=== PATIENT | male | born 1950 | race Caucasian/White ===

== ENCOUNTER 2016-09-18 09:56 | Outpatient (CLI) | payer MEDICARE, OTHER | END 2016-09-18 09:57 | disposition home or self-care (01) | DX: E78.00 Pure hypercholesterolemia, unspecified (principal) ==

== ENCOUNTER 2016-09-30 10:46 | Outpatient (CLI) | payer MEDICARE, OTHER | END 2016-09-30 10:47 | disposition home or self-care (01) | DX: R97.20 Elevated prostate specific antigen [PSA] (principal) ==

== ENCOUNTER 2017-03-28 08:24 | Outpatient (CLI) | payer MEDICARE, OTHER ==
[2017-03-28 12:09] LABS: ALBUMIN/GLOBULIN RATIO 1.6 (1.0-2.2); BILIRUBIN,TOTAL 0.8 mg/dL (0.2-1.0); BUN - BLOOD UREA NITROGEN 28 mg/dL (6-20); CALCIUM 9.1 mg/dL (8.5-10.3); CARBON DIOXIDE - CO2 28 mmol/L (21-32); CHLORIDE 104 mmol/L (101-111); CHOLESTEROL 100 mg/dL; GFR - MDRD 75 (>89); GLUCOSE 92 mg/dL (70-100); HDL CHOLESTEROL 49 mg/dL; LDL/HDL RATIO 0.8 (<3.6); POTASSIUM 4.3 mmol/L (3.5-5.0); SODIUM 140 mmol/L (135-145); TOTAL PROTEIN 7.4 g/dL (6.7-8.2); TRIGLYCERIDES 72 mg/dL; VLDL CHOLESTEROL 14 mg/dL
== END 2017-03-28 08:25 | disposition home or self-care (01) ==
LOC: LAB.F 08:24
PROVIDERS: ATTEND Internal Medicine
DX: E78.00 Pure hypercholesterolemia, unspecified (principal); I10 Essential (primary) hypertension; F41.9 Anxiety disorder, unspecified
CPT/HCPCS: 36415; 80053; 80061

== ENCOUNTER 2023-05-07 08:23 | Day surgery (SDC) | payer MEDICARE, OTHER ==
[2023-05-07] MEDS ORDERED: LACTATED RINGERS 1,000 ML IV ONE ×2 (08:31→10:08)
--- NOTE | 2023-05-07 09:35 | ANESTHESIA ---
Pre-Anesthesia VS, & Labs - Diagnosis screening exam - Procedure colonoscopy Vital Signs: Temp Pulse Resp BP Pulse Ox O2 Flow Rate 36.9 C 93 14 132/96 H 100 0 05/07/23 08:42 05/07/23 08:53 05/07/23 08:53 05/07/23 08:53 05/07/23 08:42 05/07/23 08:42 Height: 5 ft 6 in Weight (kg): 75 kg Body Mass Index: 26.6 BMI Classification: Overweight - NPO >8 hours Home Medications and Allergies Home Medications: Ambulatory Orders Atorvastatin [Lipitor] 10 mg ORAL HS 05/06/23 Dorzolamide HCl/Pf [Dorzolamide 2% Eye Drop] 1 drops EACHEYE BID 05/06/23 Latanoprost 0.005% Ophth Drops [Xalatan Ophth Drops] 1 drops EACHEYE HS 05/06/23 Lisinopril [Zestril] 20 mg ORAL HS 05/06/23 Atorvastatin [Lipitor] 10 mg ORAL HS 05/06/23 Dorzolamide HCl/Pf [Dorzolamide 2% Eye Drop] 1 drops EACHEYE BID 05/06/23 Latanoprost 0.005% Ophth Drops [Xalatan Ophth Drops] 1 drops EACHEYE HS 05/06/23 Lisinopril [Zestril] 20 mg ORAL HS 05/06/23 Allergies/Adverse Reactions: Allergies Allergy/AdvReac Type Severity Reaction Status Date / Time No Known Drug Allergies Allergy Verified 05/06/23 13:33 Anes History & Medical History - Anesthetic History Anesthesia Complications: reports: No previous complications - Medical History Cardiovascular: reports: Hypertension, High cholesterol Pulmonary: reports: None Gastrointestinal: reports: None Urinary: reports: None Neuro: reports: None Musculoskeletal: reports: None, Osteoarthritis Endocrine/Autoimmune: reports: None Skin: reports: None Smoking Status: Never smoker Psychosocial: reports: Alcohol History of Cancer?: No - Surgical History General: reports: Colonoscopy Exam General: Alert, Oriented x3, Cooperative, No acute distress Dental: WNL Mouth Openin Fingerbreadth Neck Mobility: Normal Mallampati classification: III Thyromental Distance: 4-6 cm Mental/Cognitive Status: Alert/Oriented X3, Normal for patient Plan Anesthesia Type: General, Total IV Consent for Procedure(s) Verified and Reviewed: Yes Code Status: Attempt Resuscitation ASA classification: 2-Mild systemic disease Is this case an emergency?: No
--- NOTE | 2023-05-07 10:29 | ANESTHESIA POST OP EVALUATION ---
Anesthesia Post Eval - Post Anesthesia Eval Vitals: Last Vital Signs Temp 36.2 C L 05/07/23 10:09 Pulse 85 05/07/23 10:27 Resp 15 05/07/23 10:27 BP 116/80 05/07/23 10:27 Pulse Ox 98 05/07/23 10:27 O2 Flow Rate 0 05/07/23 08:42 CV Function Including HR & BP: Stable Pain Control: Satisfactory Nausea & Vomiting: Negative Mental Status: Baseline Respiratory Status: Airway Patent Hydration Status: Satisfactory Anesthesia Complications: None
[2023-05-07 10:33] VITALS: BP 116/80; O2SAT 98
== END 2023-05-07 08:24 | disposition home or self-care (01) ==
LOC: SDS 08:23
PROVIDERS: ATTEND Surgery
DX: Z12.11 Encounter for screening for malignant neoplasm of colon (principal); K57.30 Diverticulosis of large intestine without perforation or abscess without bleeding; K64.1 Second degree hemorrhoids; I10 Essential (primary) hypertension
CPT/HCPCS: G0121; J7120